=== PATIENT | male | born 1985 | race Caucasian/White ===

== ENCOUNTER 2017-12-27 01:25 | Emergency (ER) | payer OTHER ==
[~2017-12-27] VITALS: Ht 177.8 cm; Wt 81.6 kg
[2017-12-27 01:27] VITALS: BP 132/87
--- NOTE | 2017-12-27 01:27 | NUR ---
PT TO ER BED 3. PT BIBRA C/O WITNESSED SEIZURE WITH GLF X 30 MIN. VSS/RESP EVEN UNLABORED/NAD NOTED/SKIN WARM AND DRY/DENIES N-V-D/AFEBRILE/AOX4. MD AT BEDSIDE FOR EVAL.
--- NOTE | 2017-12-27 01:35 | NUR ---
Patient does not wish to proceed with medical care recommended by Dr. Romero. Patient given information related to possible complications, up to and including , which could occur as a result of leaving the hospital at this time. Patient verbalizes understanding of risks involved due to leaving against medical advice. Patient has signed AMA form. Patient ambulatory with a steady gait.
== END 2017-12-27 01:51 | disposition left against medical advice (07) ==
LOC: ER 01:27
DX: S00.81XA Abrasion of other part of head, initial encounter (principal); R56.9 Unspecified convulsions; X58.XXXA Exposure to other specified factors, initial encounter; Y93.89 Activity, other specified; Y92.89 Other specified places as the place of occurrence of the external cause; Y99.8 Other external cause status
CPT/HCPCS: 93005; 99283; A4606; Z7610